=== PATIENT | male | born 1985 | race African-American/Black ===

== ENCOUNTER 2019-11-16 11:55 | Emergency (ER) | payer SELFPAY ==
[~2019-11-16] VITALS: Ht 190.5 cm; Wt 87.7 kg
--- NOTE | 2019-11-16 12:24 | PHYS DOC ---
General Adult EDM: Chief Complaint: ABDOMINAL PAIN HPI: HPI: Patient is a 34 year old male patient presents with lower abdominal pain. Patient states he has had this abdominal pain worsening over the last couple days, states that he has noticed some discoloration in his stools to a yellow color over the last day, significantly noticing a difference today. States he has had no appetite since day prior. States abdominal pain has been constant, feels like a cramping pain. States he has felt little bit nauseous, last time he had eaten was 24 hours ago. Denies fever, denies cough. Denies exposure to other ill persons. States pain isolated bedside. Denies any testicular pain, d enies any change in urination. Review of Systems: Review of Systems: Constitutional: Denies fever or chills. [] Respiratory: Denies cough or shortness of breath. [] Cardiovascular: Denies chest pain or edema. [] GI: Reports abdominal pain, nausea. Denies vomiting. Does report he has had a small normal amount of blood and some yellowish stools over the last 2 days. : Denies dysuria. Denies penile discharge [] Musculoskeletal: Denies back pain or joint pain. [] Integument: Denies rash. [] Neurologic: Denies headache, focal weakness or sensory changes. [] Endocrine: Denies polyuria or polydipsia. [] Lymphatic: Denies swollen glands. [] Psychiatric: Denies depression or anxiety. [] Heart Score: Risk Factors: Risk Factors: DM, Current or recent (<one month) smoker, HTN, HLP, family history of CAD, obesity. Risk Scores: Score 0 - 3: 2.5% MACE over next 6 weeks - Discharge Home Score 4 - 6: 20.3% MACE over next 6 weeks - Admit for Clinical Observation Score 7 - 10: 72.7% MACE over next 6 weeks - Early Invasive Strategies Physical Exam: PE: Constitutional: Well developed, well nourished, appears uncomfortable, non-toxic appearance. [] HENT: Normocephalic, atraumatic, bilateral external ears normal, oropharynx moist, no oral exudates, nose normal. [] Eyes: PERRLA, EOMI, conjunctiva normal, no discharge. [] Neck: Normal range of motion, no tenderness, supple, no stridor. [] Cardiovascular:Heart rate regular rhythm, no murmur [] Lungs & Thorax: Bilateral breath sounds clear to auscultation [] Abdomen: Hyperactive bowel sounds. Abdomen soft, no masses, no pulsatile masses. Negative psoas sign, positive obturator sign, moderate rebound tenderness [] Skin: Warm, dry, no erythema, no rash. [] Back: No tenderness, no CVA tenderness. [] Extremities: No tenderness, no cyanosis, no clubbing, ROM intact, no edema. [] Neurologic: Alert and oriented X 3, normal motor function, normal sensory function, no focal deficits noted. [] Psychologic: Affect normal, judgement normal, mood normal. [] EKG: EKG: [] Radiology/Procedures: Radiology/Procedures: Comparison/Correlation: None Findings: Axial images of the abdomen and pelvis were obtained following IV contrast. Sagittal and coronal reformatted images were provided. Liver, spleen, pancreas, adrenal glands, and kidneys are normal. Gallbladder fossa is normal. No extraluminal gas. No bowel obstruction. No ascites or pelvic free fluid. No inflammatory findings about the cecum. Appendix is not definitely delineated. Assessment is limited due to minimal mesenteric fat. Urinary bladder is mostly decompressed. No enlarged abdominal or pelvic lymph nodes. Slight levo convexity of the lumbar spine. Bony structures are otherwise unremarkable. Impression: No acute inflammatory process or mass. Evaluation is limited with minimal mesenteric fat and no oral contrast utilized for this exam. [] Course & Med Decision Making: Course & Med Decision Making Pertinent Labs and Imaging studies reviewed. (See chart for details) [] Patient does report he felt better after the nausea medication, discussed findings patient, with importance of follow-up, rest, hydration. Patient agreement with this plan. We will plan to discharge with antiemetics Does report he is concerned he may have an STI, states he has never been tested., Denies any penile discharge Dragon Disclaimer: Dragon Disclaimer: This electronic medical record was generated, in whole or in part, using a voice recognition dictation system. Departure Departure Impression: Primary Impression: Abdominal pain Qualified Codes: R10.32 - Left lower quadrant pain Additional Impression: Nausea Disposition: 01 HOME, SELF-CARE Condition: GOOD Referrals: NO PCP (PCP) Patient Instructions: Abdominal Pain Additional Instructions: As we discussed, you may take the medication as needed for your discomfort. Try to rest, push you are staying hydrated with plenty of fluids. Keep your body a couple day rest to to let your abdomen and improve. You may take Tylenol or ibuprofen as needed for discomfort. Scripts Metoclopramide Hcl (REGLAN) 10 Mg Tablet 1 TAB PO TID PRN for NAUSEA for 30 Days, #30 TAB 0 Refills Prov: TAMICA BRUNSON APRN 11/16/19 Justicifation of Admission Dx: Justifications for Admission: Justification of Admission Dx: N/A TAMICA BRUNSON APRN Nov 16, 2019 12:24
[2019-11-16] MEDS ORDERED: ONDANSETRON PF 4 MG/2 ML VIAL. IVP ONE (12:30)
[2019-11-16] MEDS ORDERED: MORPHINE SULFATE 2 MG/ML VIAL. IV ONE (12:30)
[2019-11-16 12:32] VITALS: BP 138/85
[2019-11-16 12:33] LABS: BILIRUBIN,URINE SMALL (NEG); CLARITY,URINE CLEAR; COLOR,URINE AMBER; NITRITE,URINE NEGATIVE (NEG); PROTEIN,URINE NEGATIVE (NEG-TRACE)
[2019-11-16 12:37] LABS: BASO # 0.1 x10^3/uL (0.0-0.2); BASO % 1 % (0-3); EOS # 0.1 x10^3/uL (0.0-0.7); EOS % 1 % (0-3); HEMATOCRIT 47.7 % (39.0-53.0); HEMOGLOBIN 16.1 g/dL (13.0-17.5); LYMPH # 1.9 x10^3/uL (1.0-4.8); LYMPH % 20 % (24-48); MEAN CORPUSCULAR HEMOGLOBIN 32 pg (25-35); MEAN CORPUSCULAR HGB CONC 34 g/dL (31-37); MEAN CORPUSCULAR VOLUME 94 fL (79-100); MONO # 0.5 x10^3/uL (0.0-1.1); MONO % 5 % (0-9); NEUT # 7.1 x10^3/uL (1.8-7.7); NEUT % 74 % (31-73); PLATELET COUNT 215 x10^3/uL (140-400); RED BLOOD COUNT 5.06 x10^6/uL (4.30-5.70); RED CELL DISTRIBUTION WIDTH 14.5 % (11.5-14.5); WHITE BLOOD COUNT 9.6 x10^3/uL (4.0-11.0)
[2019-11-16 12:45] LABS: SQUAMOUS EPITHELIAL CELL,UR MOD /LPF
[2019-11-16] MEDS ORDERED: IOHEXOL 300 MG/ML 100ML VIAL. IV ONE (12:45)
[2019-11-16] MEDS ORDERED: CONTRAST GIVEN. MC PRN (12:45)
[2019-11-16 12:46] LABS: RBC,URINE 0 /HPF (0-2); WBC,URINE 20-40 /HPF (0-4)
[2019-11-16 12:46] LABS: CALCIUM 8.8 mg/dL (8.5-10.1); CREATININE 1.2 mg/dL (0.7-1.3); GFR 83.9; POTASSIUM 3.8 mmol/L (3.5-5.1)
[2019-11-16 12:47] LABS: BACTERIA,URINE FEW /HPF (0-FEW)
[2019-11-16 12:51] LABS: ALBUMIN 3.6 g/dL (3.4-5.0); ALBUMIN/GLOBULIN RATIO 1.2 (1.0-1.7); TOTAL BILIRUBIN 0.8 mg/dL (0.2-1.0); TOTAL PROTEIN 6.5 g/dL (6.4-8.2)
--- NOTE | 2019-11-16 13:29 | RAD ---
Examination: CT ABD PELV W/ IV CONTRST ONLY History: Reason: lower abdominal pain / Spl. Instructions: [id number] 75ML / History: Comparison/Correlation: None Findings: Axial images of the abdomen and pelvis were obtained following IV contrast. Sagittal and coronal reformatted images were provided. Liver, spleen, pancreas, adrenal glands, and kidneys are normal. Gallbladder fossa is normal. No extraluminal gas. No bowel obstruction. No ascites or pelvic free fluid. No inflammatory findings about the cecum. Appendix is not definitely delineated. Assessment is limited due to minimal mesenteric fat. Urinary bladder is mostly decompressed. No enlarged abdominal or pelvic lymph nodes. Slight levo convexity of the lumbar spine. Bony structures are otherwise unremarkable. Impression: No acute inflammatory process or mass. Evaluation is limited with minimal mesenteric fat and no oral contrast utilized for this exam. PQRS Compliance Statement: One or more of the following individualized dose reduction techniques were utilized for this examination: 1. Automated exposure control 2. Adjustment of the mA and/or kV according to patient size 3. Use of iterative reconstruction technique Electronically signed by: Roly Parker MD (11/16/2019 1:26 PM) [facility]
[2019-11-16] MEDS ORDERED: METO10TA81 PO (14:00)
== END 2019-11-16 14:47 | disposition home or self-care (01) ==
LOC: ER 11:55
DX: R10.32 Left lower quadrant pain (principal); R11.0 Nausea; R19.5 Other fecal abnormalities
CPT/HCPCS: 36415; 74177; 80053; 81001; 83690; 85025; 87086; 87491; 87591; 96374; 96375; 99285; J2270; J2405; Q9967

== ENCOUNTER 2020-09-04 17:39 | Emergency (ER) | payer SELFPAY ==
[~2020-09-04] VITALS: Ht 190.5 cm; Wt 89.5 kg
[~2020-09-04 17:39] MED LIST: METO10TA81 PO
[2020-09-04] MEDS ORDERED: IV NORMAL SALINE 1000ML BAG 1,000 ML IV SCH (20:00)
[2020-09-04 20:13] LABS: BASO # 0.1 x10^3/uL (0.0-0.2); BASO % 1 % (0-3); EOS # 0.1 x10^3/uL (0.0-0.7); EOS % 1 % (0-3); HEMATOCRIT 48.4 % (39.0-53.0); HEMOGLOBIN 16.1 g/dL (13.0-17.5); LYMPH # 3.3 x10^3/uL (1.0-4.8); LYMPH % 27 % (24-48); MEAN CORPUSCULAR HEMOGLOBIN 32 pg (25-35); MEAN CORPUSCULAR HGB CONC 33 g/dL (31-37); MEAN CORPUSCULAR VOLUME 95 fL (79-100); MONO # 0.8 x10^3/uL (0.0-1.1); MONO % 6 % (0-9); NEUT # 7.9 x10^3/uL (1.8-7.7); NEUT % 65 % (31-73); PLATELET COUNT 166 x10^3/uL (140-400); RED BLOOD COUNT 5.12 x10^6/uL (4.30-5.70); RED CELL DISTRIBUTION WIDTH 14.6 % (11.5-14.5); WHITE BLOOD COUNT 12.2 x10^3/uL (4.0-11.0)
[2020-09-04 20:23] LABS: PROTHROMBIN TIME PATIENT 14.1 SEC (11.7-14.0)
[2020-09-04] MEDS ORDERED: ONDANSETRON PF 4 MG/2 ML VIAL. IVP ONE (20:30)
[2020-09-04] MEDS ORDERED: PANTOPRAZOLE IV PUSH 40 MG VIAL. IVP ONE (20:30)
[2020-09-04] MEDS ORDERED: fentaNYL PF VIAL 100 MCG/2 ML VIAL IVP ONE ×2 (20:30→21:00)
[2020-09-04 20:35] LABS: CALCIUM 8.5 mg/dL (8.5-10.1); CREATININE 1.1 mg/dL (0.7-1.3); GFR 92.2; POTASSIUM 3.7 mmol/L (3.5-5.1)
[2020-09-04 20:41] LABS: ALBUMIN 3.3 g/dL (3.4-5.0); ALBUMIN/GLOBULIN RATIO 1.5 (1.0-1.7); TOTAL BILIRUBIN 0.7 mg/dL (0.2-1.0); TOTAL PROTEIN 5.5 g/dL (6.4-8.2)
[2020-09-04] MEDS ORDERED: CONTRAST GIVEN. MC PRN (21:00)
[2020-09-04] MEDS ORDERED: IOHEXOL 300 MG/ML 100ML VIAL. IV ONE (21:00)
[2020-09-04] MEDS ORDERED: IOHEXOL 240 MG/ML 50ML VIAL. PO ONE (21:00)
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
[2020-09-04 21:44] LABS: FECAL OB PT NEGATIVE (NEG)
--- NOTE | 2020-09-04 21:46 | RAD ---
CT ABDOMEN+PELVIS W History: DARK BLOOD STOOL WITH ABD PAIN Comparison: 11/16/2019 Technique: After administration of intravenous contrast, helical CT of the abdomen and pelvis was per formed from the lung bases through the ischial tuberosities. Coronal and sagittal reconstructions wer e obtained. 75 mL of Omnipaque 300 were used. One or more of the following dose reduction techniques were utilized: Automated exposure control (AEC), Adjustment of mA and/or kV according to patient size , Use of iterative reconstruction technique such as ASiR, CT scan done according to ALARA and image g ently/image wisely Abdomen Findings: The visualized lung bases are clear. The liver, gallbladder, pancreas, spleen, and bilateral adrenal glands are normal. Symmetric renal enhancement. There is no focal renal mass. There is no hydronephrosis. The visualized loops of small bowel are normal. The visualized loops of large bowel are normal. There is no evidence of bowel obstruction. Appendix is not seen. There is no free fluid. There is no mesenteric or retroperitoneal adenopathy. The abdominal aorta is normal in caliber. Pelvis Findings: Urinary bladder is normal. No pelvic free fluid. There is no pelvic or inguinal adenopathy. There is no acute bony abnormality. IMPRESSION: No acute findings. Electronically signed by: Isaac Armas MD (09/04/2020 9:44 PM) [facility]
[2020-09-04 21:51] VITALS: BP 134/78
[2020-09-04] MEDS ORDERED: ONDA4TAB12 PO (21:55)
[2020-09-04] MEDS ORDERED: DICYCLOMINE 20 MG/2 ML VIAL. IM ONE (22:30)
== END 2020-09-04 22:22 | disposition home or self-care (01) ==
LOC: ER 17:39
DX: R10.9 Unspecified abdominal pain (principal); R11.2 Nausea with vomiting, unspecified
CPT/HCPCS: 36415; 74177; 80053; 82274; 83690; 85025; 85610; 86850; 86900; 86901; 96361; 96372; 96374; 96375; 96376; 99285; C9113; J0500; J2405; J3010; J7030; Q9966; Q9967

== ENCOUNTER 2020-09-22 20:48 | Emergency (ER) | payer SELFPAY ==
[~2020-09-22 20:48] MED LIST changes: +ONDA4TAB12 PO
== END 2020-09-22 21:16 | disposition left against medical advice (07) ==
LOC: ER 20:48
DX: K64.9 Unspecified hemorrhoids (principal); Z53.21 Procedure and treatment not carried out due to patient leaving prior to being seen by health care provider